=== PATIENT | male | born 1970 | race African-American/Black ===

== ENCOUNTER 2020-09-18 08:21 | Outpatient (CLI) | payer BC ==
[~2020-09-18] VITALS: Ht 182.9 cm; Wt 82.6 kg
[2020-09-18] VITALS (17 sets, daily range): BP systolic 94–146; BP diastolic 60–90
[~2020-09-18 08:21] MED LIST: BUTA1CAP29 PO
[2020-09-18 09:02] LABS: BASO # 0.1 x10^3/uL (0.0-0.2); BASO % 1 % (0-3); EOS # 0.2 x10^3/uL (0.0-0.7); EOS % 2 % (0-3); HEMATOCRIT 42.6 % (39.0-53.0); HEMOGLOBIN 14.9 g/dL (13.0-17.5); LYMPH # 1.9 x10^3/uL (1.0-4.8); LYMPH % 25 % (24-48); MEAN CORPUSCULAR HEMOGLOBIN 33 pg (25-35); MEAN CORPUSCULAR HGB CONC 35 g/dL (31-37); MEAN CORPUSCULAR VOLUME 93 fL (79-100); MONO # 0.8 x10^3/uL (0.0-1.1); MONO % 11 % (0-9); NEUT # 4.6 x10^3/uL (1.8-7.7); NEUT % 61 % (31-73); PLATELET COUNT 281 x10^3/uL (140-400); RED BLOOD COUNT 4.57 x10^6/uL (4.30-5.70); RED CELL DISTRIBUTION WIDTH 14.9 % (11.5-14.5); WHITE BLOOD COUNT 7.6 x10^3/uL (4.0-11.0)
[2020-09-18 09:20] LABS: PROTHROMBIN TIME PATIENT 13.2 SEC (11.7-14.0)
[2020-09-18] MEDS ORDERED: fentaNYL PF VIAL 100 MCG/2 ML VIAL IV ONE (10:00)
[2020-09-18] MEDS ORDERED: MIDAZOLAM HCL/PF 2 MG/2 ML VIAL. IV ONE (10:00)
[2020-09-18] MEDS ORDERED: LIDOCAINE WITH 8.4% SOD BICARB 3 ML DISP.SYRIN. IJ ONE (10:00)
[2020-09-18] MEDS ORDERED: LIDOCAINE WITH 8.4% SOD BICARB 3 ML DISP.SYRIN. ONE ×2 (10:04→10:13)
[2020-09-18] MEDS ORDERED: MIDAZOLAM HCL/PF 2 MG/2 ML VIAL. ONE (10:04)
[2020-09-18] MEDS ORDERED: fentaNYL PF VIAL 100 MCG/2 ML VIAL ONE (10:05)
--- NOTE | 2020-09-18 11:16 | PDOC ---
BRIEF OPERATIVE NOTE Pre-Op Diagnosis left upper lobe lung nodule Post-Op Diagnosis same Procedure Performed CT biopsy Surgeon Juan Anesthesia Type: Conscious Sedation Specimens Obtained 6 x 20g cores Findings left upper lung spiculated nodule Complications No immediate MADYSON CM MD Sep 18, 2020 11:16
--- NOTE | 2020-09-18 11:16 | PDOC ---
MODERATE SEDATION ASSESSMENT RISKS/ALTERNATIVES Risks/Alternatives Risks and alternatives of this type of sedation and procedure discussed with: RISK/ALTERNATIVES: Patient H & P ON CHART H & P H & P on chart and reviewed for co-morbid conditions and appropriate labs. H&P ON CHART: Yes STATUS PREG STATUS ASSESSED: Yes MEDS/ALLERGIES REVIEWED Meds/Allergies Reviewed Medications and Allergies including time and route of recently administered narcotics and sedatives. MEDS/ALLERGIES REVIEWED: Yes ASA RATING ASA RATING: II AIRWAY ASSESSMENT Airway Assessment Airway patency, oral function limitations, presence of caps, crowns, dentures, partials, and ability to extend neck assessed. AIRWAY ASSESSMENT: Yes MALLAMPATI SCORE MALLAMPATI SCORE: II PRE-SEDATION ASSESSMENT PRE-SEDATION ASSESSMENT: Yes MADYSON CM MD Sep 18, 2020 11:15
[2020-09-18] MEDS ORDERED: HYDR12.58 PO (12:57)
[2020-09-18] MEDS ORDERED: LOSA-73 PO (12:57)
--- NOTE | 2020-09-18 13:59 | NUR ---
Discharge Note: LEVI BELL Discharge instructions and discharge home medications reviewed with Patient and spouse and a copy given. All questions have been answered and understanding verbalized. The following instructions and handouts were given: Moderate sedation and lung biopsy. Discontinued lines and drains: Right AC iv dc'd and tip intact. Patient discharged to home with spouse via personal vehicle.
--- NOTE | 2020-09-18 14:51 | RAD ---
Single AP view of the chest. Comparison: CT of the chest from the same day. Indication: Post procedural biopsy radiograph Findings: The heart is not enlarged. No effusion Focal mixed airspace interstitial disease is seen in the left lung apex consistent with previously visualized hemorrhage. No pneumothorax. Impression: 1. Minimal, stable intraparenchymal hemorrhage is identified allowing biopsy. No pneumothorax is seen. Electronically signed by: Orlin Gonzalez MD (09/18/2020 2:49 PM) [id number]
--- NOTE | 2020-09-18 15:27 | RAD ---
Procedure: CT-guided left lung biopsy Clinical Indication: Adult male with left upper lobe spiculated lung nodule Sedation: Conscious sedation was administered with a total intraprocedural [id number] time of 20 minutes. The patient was monitored by a qualified independent observer throughout the time of sedation. Please refer to the medical record for exact doses of medications utilized to achieve moderate sedation. Antibiotics: None Sterility: The procedure was performed in its entirety using appropriate elements of sterile technique. Consent: The procedure was explained in its entirety to the patient or the patients designated retail wireless sales representative by a member of the treatment team, including a discussion of the risks, benefits and commonly accepted alternatives to the procedure, as well as the expected consequences of no therapy whatsoever. Discussion of the risks included, but was not limited to, those that are most frequent and those that are rare but possibly severe or life-threatening, as well as the possibility of unforeseen complications. Technique and Findings: Following informed consent, the patient was prepped and draped in usual sterile fashion. Preliminary CT scan of the area of interest was performed. 1% lidocaine was used to achieve local anesthesia over the area of interest. A small dermatotomy was made. Under periodic CT surveillance, a 19-gauge needle guide was advanced towards the target lesion 6 separate 20-gauge core biopsy specimens were obtained. A blood patch was applied as the needle guide was removed and hemostasis was achieved with manual compression. Specimens were preserved in formalin and in nonbacteriostatic saline for microbiologic analysis. Complications: No immediate Impression: 1. CT-guided left upper lobe lung nodule biopsy as described. PQRS Compliance Statement: One or more of the following individualized dose reduction techniques were utilized for this examination: 1. Automated exposure control 2. Adjustment of the mA and/or kV according to patient size 3. Use of iterative reconstruction technique
--- NOTE | 2020-09-21 23:11 | PATHOLOGY ---
[facility] Accession Number: [id number] . 01 Material submitted: . lung - LEFT UPPER LUNG MASS. Modifiers: left, upper lobe . 02 Diagnosis: "Left upper lung mass", needle biopsy: - INVASIVE ADENOCARCINOMA, MODERATE TO POORLY DIFFERENTIATED. (SEE COMMENT) . (CLW:joaquin; 09/21/2020) QMS 09/21/2020 0924 Local . 02 Comment: Properly controlled immunohistochemical stains are performed. . Block A1: TTF-1 - tumor cells reactive; CK7 - tumor cells reactive; P63 - a very rare tumor cell nucleus reactive; P40 - essentially nonreactive. . Clinical and radiographic correlation is recommended. The case is co-reviewed with Dr. Vanesa Gonzalez. The case is discussed with the office of Dr. Alexis Hartman on 09/21/2020 at 3:15 PM. . (CLW:joaquin; 09/21/2020) . 02 Electronically signed: . Kelly Diallo MD, Pathologist NPI- [id number] . 01 Gross description: . The specimen is received in formalin, labeled "Rosmery Miller, left lung biopsy" and consists of multiple delicate needle cores of stroud tissue measuring 1.5 x 0.5 x 0.1 cm in aggregate. The specimen is entirely submitted in A1. (SDY; 09/19/2020) SYU/SYU 09/19/2020 1642 Local . 02 Pathologist provided ICD-10: C34.12 . 02 CPT . 803898, [id number], A51775 Specimen Comment: A courtesy copy of this report has been sent to [phone], [phone] Specimen Comment: [id number], Specimen Comment: Report sent to ,DR HARTMAN / DR TORRES Performed at: 01 [facility] [address] [facility] [address] [facility] [address], [place] [id number] MD Ishaan Jimenez MD Phone: [phone] Performed at: 02 [facility] [address] [place], [place] [id number] MD Michael Luna MD Phone: [phone]
== END 2020-09-18 14:05 | disposition home or self-care (01) ==
LOC: INTRAD 08:21
PROVIDERS: ATTEND Internal Medicine Pulmonary Disease
DX: R91.1 Solitary pulmonary nodule (principal); C34.12 Malignant neoplasm of upper lobe, left bronchus or lung; I10 Essential (primary) hypertension; Z87.891 Personal history of nicotine dependence; Z88.0 Allergy status to penicillin; Z79.899 Other long term (current) drug therapy; Z98.890 Other specified postprocedural states
CPT/HCPCS: 32405; 36415; 71046; 77012; 85025; 85610; 87071; 87075; 87102; 87116; 99152; J2250; J3010; J3490

== ENCOUNTER → 2020-10-06 | Outpatient (CLI) | payer BC ==
[2020-09-18 13:45] VITALS: BP 128/85
[~2020-10-06] MED LIST changes: +HYDR12.58 PO; +LOSA-73 PO
--- NOTE | 2020-10-06 18:21 | RAD ---
EXAM: PET W CT SKULL TO MIDTHIGH EXAM DATE: 10/06/2020 INDICATION: Reason: Lung cancer. Initial staging RADIOPHARMACEUTICAL: 14.9 mCi of F-18 Fluorodeoxyglucose (FDG) I.V. via the right antecubital fossa. TECHNIQUE: Patient weight: 184 pounds. Following at least four-hour fasting, the patient's blood glucose was 103 mg/dl. Approximately 1 hour after administration of FDG, overlapping emission scanning was performed from the orbital meatal line through the pelvis. A low-dose CT was performed for attenuation correction purposes and anatomic localization. Fused images of PET and CT were reviewed. Any standardized uptake values (SUV) reported are maximum values within a volume region of interest, expressed in gm/ml. COMPARISON: CT guided lung biopsy of 09/18/2020 FINDINGS: PET: The biopsied nodule in the left lung apex shows abnormal FDG activity to a max SUV of 3.51. No abnormal FDG activity in the head and neck, chest or abdomen. In the pelvis, wall thickening in the sigmoid colon is present along with diverticuli and there is abnormal FDG uptake in the proximal sigmoid colon to max SUV of 10.9, separable from activity in the adjacent urinary bladder. For reference, there is background activity in the mediastinum to a max SUV of 3.0. There is background activity in the liver to max SUV of 2.9. CT: Spiculated 1.2 cm left apical pulmonary nodule is redemonstrated. There is minimal early emphysematous change of the lung apices. No pneumothorax or pleural effusion. Attenuation correction CT images suggest mild prominence of the left greater than right bilateral level 1 axillary lymph nodes but no abnormal FDG uptake is identified and no abnormal morphology is seen either. IMPRESSION: FDG avid 1.2 cm left apical pulmonary nodule showing a max SUV of 3.5 with no evidence of locally advanced or distant metastatic disease Electronically signed by: Tennille Langford MD (10/06/2020 6:18 PM) [id number]
== END ==
LOC: PETSC 08:00
PROVIDERS: ATTEND Internal Medicine Pulmonary Disease
DX: R91.1 Solitary pulmonary nodule (principal); C34.90 Malignant neoplasm of unspecified part of unspecified bronchus or lung; J43.9 Emphysema, unspecified
CPT/HCPCS: 78815; A9552